=== PATIENT | male | born 1960 | race African-American/Black ===

== ENCOUNTER 2022-11-27 00:24 | Day surgery (SDC) | payer OTHER, SELFPAY ==
[2022-11-16 13:36] VITALS: BMI 22.9
[2022-11-16 13:56] VITALS: BMI 22.9
[2022-11-27 11:14] VITALS: BP 110/71; PULSE 76; RESP 16; TEMP 36.3; O2SAT 100
[2022-11-27] MEDS: LACTATED RINGERS 1,000 ML 150 ML IV CONT (11:27)
--- NOTE | 2022-11-27 11:28 | WPDANESEPPF ---
Anes - Initial Pre Proc Eval Procedure: Operation Date: 11/27/22 12:30 Proposed Procedures p Screening Colonoscopy - Max Wiggins MD Date/Time: 11/27/22 11:28 Surgeon: Max Wiggins MD Pre Op Diagnosis: neoplasm screening Patient Data Age: 61 Gender: M Height: 1.78 m Weight: 64.4 kg Last Vital Signs Temp 97.3 F L 11/27/22 11:14 Pulse 76 11/27/22 11:14 Resp 16 11/27/22 11:14 BP 110/71 11/27/22 11:14 Pulse Ox 100 11/27/22 11:14 O2 Del Method Room Air 11/27/22 11:14 Allergies Allergy/AdvReac Type Severity Reaction Status Date / Time No Known Allergies Allergy Verified 11/27/22 11:14 Home Medications Medication Instructions Recorded Confirmed Type cetirizine 10 mg tablet (Zyrtec) 10 mg PO DAILY #90 tabs 07/06/20 11/27/22 Rx fluticasone propionate 50 1 spray intranasal DAILY #19.8 mL 07/06/20 11/27/22 Rx mcg/actuation nasal spray,suspension (Flonase Allergy Relief) omeprazole 40 mg capsule,delayed 40 mg PO DAILY #90 caps 10/19/22 11/27/22 Rx release valacyclovir 1 gram tablet 2,000 mg PO .Q12H for 1 day PRN 10/19/22 11/27/22 Rx cold sores #30 tabs zolpidem 10 mg tablet 10 mg PO DAILY #90 tabs 10/19/22 11/27/22 Rx Patient hx anesthesia problems: none Family hx anesthesia problems: none Results Review: All pre-operative results and documents have been reviewed as part of the pre-operative evaluation. 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 Smoking status: Never smoker Second hand tobacco smoke exposure: No Alcohol intake: current Drinks per week: 2 Alcohol use details: consumes 1 or 2 beers daily Substance use: never Substance use type: does not use Lack of Transportation: No Lack of Food: Never True Current Housing: I Have Housing Concerned About Future Housing: No Difficulty Paying Gas/Electric Bills: No Difficulty Paying for Meds: No Currently Unemployed: No Education: Decline to Answer Difficulty w/ Childcare or Family Care: No Living arrangements: with family Gender identity (if verbalized by the patient): Male Spiritual care concerns: No Anes - Eval Final PreProcedure Day of Procedure 11/27/22 11:28 Patient weight: normal Heart: regular rate and rhythm Lungs: clear to auscultation Airway: Mallampati scale class II Neurological: alert and oriented Last oral intake: >/= 8 hours ASA classification: II Emergent: no Anesthetic plan: proceed Anesthesia type and monitoring: general GIVS and standard monitoring Results Review: All pre-operative results and documents have been reviewed as part of the pre-operative evaluation. Informed Consent: The patient's anesthetic plan and its attendant risks and benefits were discussed with the patient/family/POA. Questions were solicited and answers provided to the satisfaction of the patient/family/POA.
--- NOTE | 2022-11-27 11:37 | PM.HPGS ---
History of Present Illness History of Present Illness Consent: Risks, benefits, and alternatives have been discussed and questions answered. Patient agrees to proceed with procedure. Chief complaint: neoplasm screening Narrative: Favian Galvan Sr. is a 61 year old male here for colon screening, last colonoscopy 2012 Review of Systems Constitutional: Constitutional: Denies headache(s) and Denies weakness Eyes: Eyes: Denies blurry vision ENT: Reports Normal hearing present, Denies headache(s) and Denies neck pain Cardiovascular: Cardiovascular: Denies chest pain and Denies dyspnea Respiratory: Respiratory: Denies dyspnea Gastrointestinal: Gastrointestinal: Reports no additional gastrointestinal complaints Genitourinary: Genitourinary: Denies dysuria Musculoskeletal: Musculoskeletal: Denies neck pain Integumentary/Breasts: Skin/Breast: Denies dry skin Neurologic: Reports Normal hearing present, Denies headache(s) and Denies weakness Psychiatric: Psychiatric: Denies anxiety Endocrine: Endocrine: Denies change in body appearance Hematologic/Lymphatic: Hematologic/Lymphatic: Denies easy bleeding Allergic/Immunologic: Allergic/Immunologic: Denies urticaria PMFSH Past Medical History Medical History (Updated 11/27/22 @ 11:38 by Max Wiggins MD) Colon cancer screening Dyslipidemia GERD (gastroesophageal reflux disease) Insomnia Prediabetes Recurrent cold sores Seasonal allergies Surgical History Surgical History H/O wisdom tooth extraction Family History Family History Father Hypertension Patient's father is in good health Malignant neoplasm of prostate Sibling Patient's sister is in good health Patient's brother is in good health Mother Patient's mother is in good health Carcinoma of colon Father Heart disease Cancer Mother Heart disease Cancer Social History Social History Social History: , 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 Smoking status: Never smoker Second hand tobacco smoke exposure: No Alcohol intake: current Drinks per week: 2 Alcohol use details: consumes 1 or 2 beers daily Substance use: never Substance use type: does not use Lack of Transportation: No Lack of Food: Never True Current Housing: I Have Housing Concerned About Future Housing: No Difficulty Paying Gas/Electric Bills: No Difficulty Paying for Meds: No Currently Unemployed: No Education: Decline to Answer Difficulty w/ Childcare or Family Care: No Living arrangements: with family Gender identity (if verbalized by the patient): Male Spiritual care concerns: No Meds Home Medications and Allergies Home Medications Medication Instructions Recorded Confirmed Type cetirizine 10 mg tablet (Zyrtec) 10 mg PO DAILY #90 tabs 07/06/20 11/27/22 Rx fluticasone propionate 50 1 spray intranasal DAILY #19.8 mL 07/06/20 11/27/22 Rx mcg/actuation nasal spray,suspension (Flonase Allergy Relief) omeprazole 40 mg capsule,delayed 40 mg PO DAILY #90 caps 10/19/22 11/27/22 Rx release valacyclovir 1 gram tablet 2,000 mg PO .Q12H for 1 day PRN 10/19/22 11/27/22 Rx cold sores #30 tabs zolpidem 10 mg tablet 10 mg PO DAILY #90 tabs 10/19/22 11/27/22 Rx Allergies Allergy/AdvReac Type Severity Reaction Status Date / Time No Known Allergies Allergy Verified 11/27/22 11:14 Vital Signs Vital Signs - 24 hr 11/27/22 11:14 Temperature 97.3 F L Pulse Rate 76 Respiratory Rate 16 Blood Pressure 110/71 Pulse Oximetry 100 Oxygen Delivery Room Air Exam Const: General: comfortable and no acute distress HENMT: Face/Nose/Sinus: Normal nares present Eyes: General: appearance normal, both eyes and all related structures Neck: Neck: no JVD Resp: Aus
[2022-11-27 11:58] VITALS: BP 98/55; PULSE 66; RESP 21; O2SAT 100
[2022-11-27 12:08] VITALS: BP 102/63; PULSE 61; RESP 18; O2SAT 100
[2022-11-27 12:16] VITALS: BP 119/67; PULSE 60; RESP 23; O2SAT 100
== END 2022-11-27 12:27 | disposition home or self-care (01) ==
PROVIDERS: PCP Family Medicine; Visit Provider Internal Medicine Gastroenterology
PROC: 0DJD8ZZ Inspection of Lower Intestinal Tract, Via Natural or Artificial Opening Endoscopic (ICD-10-PCS; CPT 45378; principal; 2022-11-27 12:30)
DX: Z12.11 Encounter for screening for malignant neoplasm of colon (principal); K57.30 Diverticulosis of large intestine without perforation or abscess without bleeding; K64.8 Other hemorrhoids; E78.5 Hyperlipidemia, unspecified; R73.03 Prediabetes; K21.9 Gastro-esophageal reflux disease without esophagitis
CPT/HCPCS: 45378; J2704; J7120